=== PATIENT | female | born 1995 | race Caucasian/White ===

== ENCOUNTER 2018-12-29 20:11 | Emergency (ER) | payer MEDICAID ==
[2018-12-29 20:24] VITALS: RESP 18
--- NOTE | 2018-12-29 20:52 | ED PDOC ---
Arrival/HPI - General Chief Complaint: Back Pain Time Seen by Provider: 12/29/18 20:13 Historian: Patient Past Medical History - Provider Review Nursing Documentation Reviewed: Yes - Infectious Disease Hx of Infectious Diseases: None - Cardiac Hx Cardiac Disorders: No - Pulmonary Hx Respiratory Disorders: No - Neurological Hx Neurological Disorder: No - HEENT Hx HEENT Disorder: No - Renal Hx Renal Disorder: No - Endocrine/Metabolic Hx Endocrine Disorders: No - Hematological/Oncological Hx Blood Disorders: No - Integumentary Hx Dermatological Disorder: No - Musculoskeletal/Rheumatological Hx Musculoskeletal Disorders: No - Gastrointestinal Hx Gastrointestinal Disorders: No - Genitourinary/Gynecological Hx Genitourinary Disorders: No - Psychiatric Hx Psychophysiologic Disorder: No Hx Substance Use: No - Anesthesia Hx Anesthesia: No Family/Social History - Physician Review Nursing Documentation Reviewed: Yes Family/Social History: Unknown Family HX Smoking Status: Never Smoked Hx Alcohol Use: Yes Frequency of alcohol use: Socially Hx Substance Use: No Allergies/Home Meds Allergies/Adverse Reactions: Allergies No Known Allergies Allergy (Verified 12/29/18 20:22) Home Medications: Home Meds Medication Instructions Recorded Confirmed No Known Home Med 12/29/18 12/29/18 Physical Exam Vital Signs Temp Pulse Resp BP Pulse Ox 12/29/18 20:23 100.1 F H 99 H 18 107/78 100 Temperature: Febrile Pulse: Tachycardic Medical Decision Making ED Course and Treatment: 12/29/18 20:52 Impression: Differential Diagnosis included but are not limited to: Plan: -- -- Reassess and disposition Prior Visits: Notes and results from previous visits were reviewed. Progress Notes: - Scribe Statement The provider has reviewed the documentation as recorded by the Pratik Bland All medical record entries made by the Pratik were at my direction and personally dictated by me. I have reviewed the chart and agree that the record accurately reflects my personal performance of the history, physical exam, medical decision making, and the department course for this patient. I have also personally directed, reviewed, and agree with the discharge instructions and disposition. Disposition/Present on Arrival - Present on Arrival History of DVT/PE: No History of Uncontrolled Diabetes: No Urinary Catheter: No History of Decub. Ulcer: No History Surgical Site Infection Following: None - Disposition Referrals: PCP,NO [Primary Care Provider] - Follow up with primary
--- NOTE | 2018-12-29 20:58 | ED PDOC ---
Arrival/HPI - General Chief Complaint: Back Pain Time Seen by Provider: 12/29/18 20:13 Historian: Patient - History of Present Illness Narrative History of Present Illness (Text): 12/29/18 23:30 23-year-old female presents today with midline and bilateral back pain that started yesterday. Patient complaining of fevers and chills. She denies chest pain or shortness of breath. She denies urinary symptoms. Patient denies vomi ting or diarrhea. Patient denies abdominal pain. Patient states the pain radiates across the entire lower back. No medications have been taken for pain at home. Patient denies URI symptoms. Patient denies dizziness or weakness. Patient states she is 4 months and is concerned because she had an epidural 4 months ago. Patient states she has been having some nausea. Patient denies cough. No other complaints. Past Medical History - Provider Review Nursing Documentation Reviewed: Yes - Travel History Have you recently traveled outside [place] w/in the past 3 mons?: No - Infectious Disease Hx of Infectious Diseases: None - Cardiac Hx Cardiac Disorders: No - Pulmonary Hx Respiratory Disorders: No - Neurological Hx Neurological Disorder: No - HEENT Hx HEENT Disorder: No - Renal Hx Renal Disorder: No - Endocrine/Metabolic Hx Endocrine Disorders: No - Hematological/Oncological Hx Blood Disorders: No - Integumentary Hx Dermatological Disorder: No - Musculoskeletal/Rheumatological Hx Musculoskeletal Disorders: No - Gastrointestinal Hx Gastrointestinal Disorders: No - Genitourinary/Gynecological Hx Genitourinary Disorders: No - Psychiatric Hx Psychophysiologic Disorder: No Hx Substance Use: No - Anesthesia Hx Anesthesia: No Family/Social History - Physician Review Nursing Documentation Reviewed: Yes Family/Social History: Unknown Family HX Smoking Status: Never Smoked Hx Alcohol Use: Yes Frequency of alcohol use: Socially Hx Substance Use: No Allergies/Home Meds Allergies/Adverse Reactions: Allergies No Known Allergies Allergy (Verified 12/29/18 20:22) Review of Systems - Physician Review All systems were reviewed & negative as marked: Yes - Review of Systems Constitutional: Fatigue, Fevers ENT: absent: Sore Throat, Sinus Congestion Respiratory: absent: SOB, Cough Cardiovascular: absent: Chest Pain, Palpitations Gastrointestinal: Nausea. absent: Abdominal Pain, Constipation, Diarrhea, Vomiting Genitourinary Female: absent: Dysuria, Frequency, Hematuria Musculoskeletal: Back Pain. absent: Arthralgias, Neck Pain Skin: absent: Rash, Pruritis Neurological: absent: Headache, Dizziness Psychiatric: absent: Anxiety, Depression Physical Exam Vital Signs Reviewed: Yes Vital Signs Temp Pulse Resp BP Pulse Ox 12/29/18 20:23 100.1 F H 99 H 18 107/78 100 Temperature: Febrile Blood Pressure: Normal Pulse: Tachycardic Respiratory Rate: Normal Appearance: Positive for: Well-Appearing, Non-Toxic, Comfortable Pain Distress: None Mental Status: Positive for: Alert and Oriented X 3 - Systems Exam Head: Present: Atraumatic Mouth: Present: Moist Mucous Membranes Pharnyx: Present: Normal Nose (External): Present: Atraumatic Nose (Internal): Present: Normal Inspection Neck: Present: Normal Range of Motion Respiratory/Chest: Present: Clear to Auscultation, Good Air Exchange. No: Respiratory Distress, Accessory Muscle Use Cardiovascular: Present: Regular Rate and Rhythm, Normal S1, S2. No: Murmurs Abdomen: No: Tenderness, Distention, Peritoneal Signs, Rebound, Guarding Back: Present: Normal Inspection, CVA Tenderness (bilateral), Midline Tenderness, Paraspinal Tenderness, Other (no edema. no erythema; no ecchymosis. The entire back is tender. ) Upper Extremity: Present: Normal Inspection, Normal ROM Lower Extremity: Present: Normal Inspection, Normal ROM, Neurovascularly Intact. No: Tenderness, Temperature Abnormalties Neurological: Present: GCS=15, Speech Normal Skin: Present: Warm, Dry, Normal Color. No: Rashes Psychiatric: Present: Alert, Oriented x 3 Medical Decision Making ED Course and Treatment: 12/29/18 20:58 23-year-old female with fever and back pain since yesterday. No medications taken at home CBC within normal limits CMP within normal limits Lactic acid 1.2 Rapid flu positive Urinalysis: Positive leukocytes positive nitrates positive too numerous to count white blood cells Patient started on Tamiflu p.o. Rocephin given IV for UTI/possible pyelonephritis NS 1L IV bolus given. 12/29/18 23:34 pt reassessment; pt feeling better after medications. 2L NS iv bolus given. ct abd/pelvis; COMMENTS: Diffuse thickening and enhancement of the bladder. Right urothelial thickening and enhancement. The liver is of uniform attenuation without mass or defect. There is no intra or extrahepatic biliary ductal dilatation. The spleen is normal. The gallbladder is within normal limits. The pancreas is of normal contour and attenuation characteristics. There is no evidence of adrenal mass. Both kidneys demonstrate prompt and equal nephrograms. The kidneys are normal in size, shape and configuration. There is no evidence of renal or ureteral mass. No renal or ureteral calculi are identified. There is no hydroureter or hydronephrosis. No evidence for appendicitis. There is no bowel wall thickening. No evidence for small or large bowel obstruction. There is no evidence of abdominal ascites or lymphadenopathy. There is no evidence of intrinsic or extrinsic bladder mass. There is no pelvic ascites or lymphadenopathy. Images of the lung bases show no evidence of pleural or parenchymal mass. There are no pleural effusions. The bony structures are free of lytic or blastic lesions. IMPRESSION: Diffuse thickening and enhancement of the bladder. Probably cystitis. Right urothelial thickening and enhancement. Secondary ascending urinary tract infection. Thank you for your kind referral of this patient. Electronically signed on Dec 30, 2018 1:12:58 AM EDT by: Laureen Howard M.D., Certified by [facility], MSK, Neuroradiology pt reassessment; pt feeling much better; vitals stable. Patient is not actively vomiting. abdomen is nontender. Patient feels well enough to go home. No leukocytosis. all results discussed in depth with the patient. Patient was advised to take antibiotics and Tamiflu as prescribed. She was advised to follow-up with a primary care physician within the next 2 days. Patient was advised immediate return if symptoms worsen persist or if new concerning symptoms develop. Patient was advised to increase fluids and follow- up with urologist. Patient verbalizes understanding of discharge instructions and need for immediate followup. All aspects of this case were discussed the attending of record. impression; influenza, pyelonephritis Motrin every 6 hours as needed for pain/fever reduction Tamiflu twice daily times 5 days Keflex twice daily times 14 days Increase fluids Follow-up with a primary care physician within the next 2 days Return immediately if symptoms worsen persist or if new symptoms develop: High fevers, increasing pain, vomiting or if any other concerning symptoms develop Reassessment Condition: Re-examined, Improved - PA / MICA SPLITTER / Resident Statement / has reviewed & agrees with the documentation as recorded. MD/DO has examined the patient and agrees with the treatment plan. - Scribe Statement The provider has reviewed the documentation as recorded by the Marcoibpratik Bland All medical record entries made by the Scribe were at my direction and per sonally dictated by me. I have reviewed the chart and agree that the record accurately reflects my personal performance of the history, physical exam, medical decision making, and the department course for this patient. I have also personally directed, reviewed, and agree with the discharge instructions and disposition. Disposition/Present on Arrival - Present on Arrival Any Indicators Present on Arrival: No History of DVT/PE: No History of Uncontrolled Diabetes: No Urinary Catheter: No History of Decub. Ulcer: No History Surgical Site Infection Following: None - Disposition Have Diagnosis and Disposition been Completed?: Yes Diagnosis: Influenza, Pyelonephritis Disposition: HOME/ ROUTINE Disposition Time: : Patient Plan: Discharge Condition: GOOD Discharge Instructions (ExitCare): Flu, Adult (DC), Kidney Infection (DC) Additional Instructions: Motrin every 6 hours as needed for pain/fever reduction Tamiflu twice daily times 5 days Vantin twice daily times 14 days Increase fluids Follow-up with a primary care physician within the next 2 days Return immediately if symptoms worsen persist or if new symptoms develop: High fevers, increasing pain, vomiting or if any other concerning symptoms develop Prescriptions: Cefpodoxime [Vantin] 100 mg PO BID #28 tab Ibuprofen [Motrin] 600 mg PO Q6H PRN #20 tab PRN Reason: pain/fever reduction Oseltamivir Cap [Tamiflu] 75 mg PO BID #10 cap Referrals: Julee Mooney MD [Medical Doctor] - Follow up with primary Murphy Drake MD [Staff Provider] - Follow up with primary [facility] [Outside] - Follow up with primary Forms: [facility] (Estonian), WORK NOTE
[2018-12-29] MEDS ORDERED: Sodium Chloride 0.9% 1,000 ML IV STA (21:02)
[2018-12-29 21:25] LABS: VENOUS BLOOD GAS BASE EXCESS 5.3 mmol/L (0.0-2.0); VENOUS BLOOD GAS PO2 20 mm/Hg (30-55); VENOUS BLOOD PH 7.38 (7.32-7.43)
[2018-12-29 21:38] LABS: ALB/GLOB RATIO 1.1 (1.1-1.8); ALBUMIN 4.3 g/dL (3.0-4.8); AST/SGOT 30 U/L (14-36); BLOOD UREA NITROGEN 12 mg/dL (7-21); CALCIUM 9.2 mg/dL (8.4-10.5); GFR NON-AFRICAN AMERICAN > 60
[2018-12-29 21:41] LABS: ALT/SGPT < 6 U/L (7-56)
[2018-12-29 21:44] LABS: BASO # 0.01 K/mm3 (0.0-2.0); BASO % 0.1 % (0.0-3.0); EOS % 0.1 % (1.5-5.0); HEMOGLOBIN 11.8 g/dL (12.0-16.0); LYMPH # 1.3 (1.2-3.4); LYMPH % 12.7 % (22.0-35.0); MEAN CELL VOLUME 71.7 fl (80.0-105.0); MEAN CORPUSCULAR HGB CONC 32.2 g/dl (31.0-37.0); MONO # 0.3 (0.1-0.6); MONO % 2.8 % (1.0-6.0); RBC 5.12 10^6/uL (3.5-6.1); RED CELL DISTRIBUTION WIDTH 16.6 % (11.5-14.5)
[2018-12-29 22:07] LABS: PH,URINE 6.5 (4.7-8.0); URINE BILIRUBIN NEGATIVE (NEGATIVE); URINE BLOOD MODERATE (NEGATIVE); URINE GLUCOSE (UA) NEGATIVE (NEGATIVE); URINE LEUKOCYTE ESTERASE MODERATE Leu/uL (NEGATIVE); URINE PROTEIN 100 mg/dL (<30 mg/dL)
[2018-12-29 22:12] LABS: URINE APPEARANCE CLOUDY (CLEAR); URINE COLOR YELLOW (YELLOW)
[2018-12-29 22:32] LABS: URINE BACTERIA MANY /hpf; URINE WBC TNTC /hpf (0-6)
[2018-12-29] MEDS ORDERED: Iohexol 350 MG/100 ML VIAL ONE (22:58)
[2018-12-29] MEDS ORDERED: cefTRIAXone 1 gm 1 GM/100 ML BAG IVPB STA (23:34)
[2018-12-30 01:42] VITALS: TEMP 98.3
[2018-12-30 02:09] VITALS: BP 115/71; PULSE 88; O2SAT 99
--- NOTE | 2018-12-30 09:01 | CT ---
Date of service: 12/29/2018 PROCEDURE: CT Abdomen and Pelvis with contrast HISTORY: back pain COMPARISON: Not available TECHNIQUE: Contrast dose: 100 mL Omnipaque 350 Radiation dose: Total exam DLP = 837.54 mGy-cm. This CT exam was performed using one or more of the following dose reduction techniques: Automated exposure control, adjustment of the mA and/or kV according to patient size, and/or use of iterative reconstruction technique. FINDINGS: LOWER THORAX: Unremarkable. LIVER: Unremarkable. No gross lesion or ductal dilatation. GALLBLADDER AND BILE DUCTS: Unremarkable. PANCREAS: Unremarkable. No gross lesion or ductal dilatation. SPLEEN: Unremarkable. ADRENALS: Unremarkable. No mass. KIDNEYS AND URETERS: Unremarkable. No hydronephrosis. No solid mass. VASCULATURE: Unremarkable. No aortic aneurysm. No aortic atherosclerotic calcification or mural plaque present. BOWEL: There is focal circumferential mural thickening of the gastric body best seen on series 3, image 43 through 51. This is nonspecific and may reflect peptic ulcer disease or gastritis. There is no generalized mural thickening. There is no hiatal hernia. APPENDIX: Normal appendix. PERITONEUM: Unremarkable. No free fluid. No free air. LYMPH NODES: Unremarkable. No enlarged lymph nodes. BLADDER: Minimal mural thickening likely artifactual secondary to inadequate distention. Correlate with urinalysis. REPRODUCTIVE: Normal uterus BONES: No acute fracture. OTHER FINDINGS: None. IMPRESSION: Focal circumferential mural thickening of the gastric body common nonspecific. Consider correlation with upper endoscopy. Minimal thickening of bladder wall likely artifactual due to inadequate distention. No additional abnormality. The preliminary findings for this examination were reported by [facility] at 12:58 a.m. on 12/30/2018. There is discordance of this report with the preliminary findings. Gastric mural thickening was not described in the preliminary report of this examination.
--- NOTE | 2018-12-30 10:48 | RAD ---
Date of service: 12/29/2018 HISTORY: fever/ back pain/chills COMPARISON: No prior. FINDINGS: LUNGS: No active pulmonary disease. PLEURA: No significant pleural effusion identified, no pneumothorax apparent. CARDIOVASCULAR: No aortic atherosclerotic calcification present. Normal cardiac size. No pulmonary vascular congestion. OSSEOUS STRUCTURES: No significant abnormalities. VISUALIZED UPPER ABDOMEN: Normal. OTHER FINDINGS: None. IMPRESSION: No active disease.
== END 2018-12-30 02:09 | disposition home or self-care (01) ==
LOC: MERGE 20:11 → ED 20:11
DX: J11.1 Influenza due to unidentified influenza virus with other respiratory manifestations (principal); N12 Tubulo-interstitial nephritis, not specified as acute or chronic
CPT/HCPCS: 71045; 74177; 80053; 81001; 81025; 82803; 85025; 87040; 87086; 87181; 87804; 96374; 99283; J0696; J1885; J7030; Q9967